=== PATIENT | male | born 1950 | race African-American/Black ===

== ENCOUNTER 2018-04-06 11:42 | Inpatient (IN) | payer BC, MEDICARE ==
[2018-04-06 12:13] LABS: BILIRUBIN,URINE NEGATIVE (NEG); CLARITY,URINE CLEAR; COLOR,URINE YELLOW; GLUCOSE,URINE NEGATIVE (NEG); NITRITE,URINE NEGATIVE (NEG); PROTEIN,URINE NEGATIVE (NEG-TRACE); UROBILINOGEN,URINE 0.2 mg/dL (0.2 mg/dL)
[2018-04-06 12:21] LABS: BACTERIA,URINE 0 /HPF (0-FEW); RBC,URINE 0 /HPF (0-2); WBC,URINE 0 /HPF (0-4)
[2018-04-06 12:32] LABS: ADD MAN DIFF? NO
[2018-04-06] MEDS: IV NORMAL SALINE 1000ML BAG 1,000 ML IV (12:41)
[2018-04-06 12:43] LABS: AMPHETAMINE/METHAMPHETAMINE NEG (NEG); BARBITURATES NEG (NEG); BENZODIAZEPINES NEG (NEG); CANNABINOIDS NEG (NEG); COCAINE NEG (NEG); ETHANOL, URINE NEG (NEG); METHADONE NEG (NEG); OPIATES NEG (NEG); PHENCYCLIDINE NEG (NEG)
[2018-04-06 12:44] LABS: BASO % 1 % (0-3); EOS # 0.1 x10^3/uL (0.0-0.7); EOS % 2 % (0-3); HEMATOCRIT 43.6 % (39.0-53.0); LYMPH # 1.5 x10^3/uL (1.0-4.8); LYMPH % 25 % (24-48); MEAN CORPUSCULAR HEMOGLOBIN 29 pg (25-35); MEAN CORPUSCULAR HGB CONC 34 g/dL (31-37); MEAN CORPUSCULAR VOLUME 85 fL (79-100); MONO # 0.6 x10^3/uL (0.0-1.1); MONO % 10 % (0-9); NEUT # 3.7 x10^3uL (1.8-7.7); NEUT % 63 % (31-73); PLATELET COUNT 274 x10^3/uL (140-400); RED BLOOD COUNT 5.16 x10^6/uL (4.30-5.70); RED CELL DISTRIBUTION WIDTH 13.7 % (11.5-14.5); WHITE BLOOD COUNT 5.9 x10^3/uL (4.0-11.0)
[2018-04-06 12:51] LABS: PROTHROMBIN TIME PATIENT 12.7 SEC (11.7-14.0)
[2018-04-06 12:57] LABS: TROPONINI < 0.017 ng/mL (0.000-0.055)
[2018-04-06 12:58] LABS: BLOOD UREA NITROGEN 22 mg/dL (8-26); BUN/CREATININE RATIO 17 (6-20); CALCIUM 9.4 mg/dL (8.5-10.1); CREATININE 1.3 mg/dL (0.7-1.3); GLUCOSE 111 mg/dL (70-99)
[2018-04-06 12:59] LABS: ANION GAP 11 (6-14); CARBON DIOXIDE 25 mmol/L (21-32); CHLORIDE 104 mmol/L (98-107); GFR 66.8; POTASSIUM 3.2 mmol/L (3.5-5.1); SODIUM 140 mmol/L (136-145)
[2018-04-06 13:02] LABS: THYROID STIM HORMONE (TSH) 1.353 uIU/mL (0.358-3.74)
[2018-04-06 13:02] LABS: ALBUMIN 4.1 g/dL (3.4-5.0); ALBUMIN/GLOBULIN RATIO 1.1 (1.0-1.7); ALK PHOS 66 U/L (46-116); ALT (SGPT) 30 U/L (16-63); AST (SGOT) 21 U/L (15-37); MAGNESIUM 2.1 mg/dL (1.8-2.4); TOTAL BILIRUBIN 0.4 mg/dL (0.2-1.0); TOTAL PROTEIN 7.8 g/dL (6.4-8.2)
[2018-04-06 13:06] LABS: CKMB INDEX 0.6 % (0-4); CKMB MASS 1.9 ng/mL (0.0-3.6); CREATINE KINASE 295 U/L (39-308)
[2018-04-06 13:06] LABS: NT-PRO BNP 426 pg/mL (0-124)
[2018-04-06] MEDS: METOPROLOL TARTRATE 5 MG/5 ML VIAL. IVP ×2 (14:00→16:57)
[2018-04-06] MEDS ORDERED: MORPHINE SULFATE 4 MG/ML DISP.SYRIN. IV (15:30)
[2018-04-06] MEDS ORDERED: ACETAMINOPHEN 325 MG TABLET. PO (15:30)
[2018-04-06] MEDS ORDERED: ONDANSETRON PF 4 MG/2 ML VIAL. IV (15:30)
[2018-04-06] MEDS ORDERED: NITROGLYCERIN SUBLINGUAL 0.4 MG BOTTLE OF 25. SL (15:30)
[2018-04-06] MEDS: POTASSIUM CHLORIDE 20 MEQ TABLET.ER. PO (16:57)
[2018-04-06] MEDS: ASPIRIN ENTERIC COATED 325 MG TABLET.DR. PO (16:57)
[2018-04-06] MEDS: METOPROLOL TART IMMED RELEASE 25 MG TABLET. PO ×2 (18:02→23:38)
[2018-04-06 18:32] LABS: FREE T4 1.01 ng/dL (0.76-1.46)
[2018-04-07 04:54] LABS: ADD MAN DIFF? NO
[2018-04-07 05:00] LABS: BASO # 0.1 x10^3/uL (0.0-0.2); BASO % 1 % (0-3); EOS # 0.3 x10^3/uL (0.0-0.7); EOS % 5 % (0-3); HEMATOCRIT 38.5 % (39.0-53.0); HEMOGLOBIN 13.6 g/dL (13.0-17.5); LYMPH # 1.6 x10^3/uL (1.0-4.8); LYMPH % 28 % (24-48); MEAN CORPUSCULAR HEMOGLOBIN 30 pg (25-35); MEAN CORPUSCULAR HGB CONC 36 g/dL (31-37); MEAN CORPUSCULAR VOLUME 85 fL (79-100); MONO # 0.6 x10^3/uL (0.0-1.1); MONO % 11 % (0-9); NEUT # 3.2 x10^3uL (1.8-7.7); NEUT % 55 % (31-73); PLATELET COUNT 237 x10^3/uL (140-400); RED BLOOD COUNT 4.55 x10^6/uL (4.30-5.70); WHITE BLOOD COUNT 5.9 x10^3/uL (4.0-11.0)
[2018-04-07 05:20] LABS: ALBUMIN 3.3 g/dL (3.4-5.0); ALK PHOS 52 U/L (46-116); ALT (SGPT) 29 U/L (16-63); ANION GAP 9 (6-14); AST (SGOT) 23 U/L (15-37); BLOOD UREA NITROGEN 23 mg/dL (8-26); BUN/CREATININE RATIO 16 (6-20); CALCIUM 8.6 mg/dL (8.5-10.1); CARBON DIOXIDE 27 mmol/L (21-32); CHLORIDE 106 mmol/L (98-107); CREATININE 1.4 mg/dL (0.7-1.3); GFR 61.4; GLUCOSE 104 mg/dL (70-99); POTASSIUM 3.9 mmol/L (3.5-5.1); SODIUM 142 mmol/L (136-145); TOTAL BILIRUBIN 0.4 mg/dL (0.2-1.0); TOTAL PROTEIN 6.6 g/dL (6.4-8.2)
[2018-04-07 05:24] LABS: CHOLESTEROL 160 mg/dL (0-200); HDLC 37 mg/dL (40-60); LDLC 90 mg/dL (0-100); NON-HDL CHOLESTEROL 123 mg/dL (0-129); TRIGLYCERIDES 165 mg/dL (0-150); VLDLC 33 mg/dL (0-40)
[2018-04-07 05:32] LABS: CHOLESTEROL/HDL RATIO 4.3
[2018-04-07] MEDS: METOPROLOL TART IMMED RELEASE 25 MG TABLET. PO (06:32)
[2018-04-07] MEDS: ASPIRIN ENTERIC COATED 325 MG TABLET.DR. PO (09:24)
[2018-04-07] MEDS: METOPROLOL TART IMMED RELEASE 50 MG TABLET. PO (10:29)
[2018-04-07] MEDS: APIXABAN 5 MG TABLET. PO (10:29)
[2018-04-07] MEDS ORDERED: ANTI-COAG MONITOR BY PHARMACY. MC (12:15)
== END 2018-04-07 13:05 | disposition home or self-care (01) | DRG 310 ==
LOC: 2 SOUTH 16:10 → ER 11:42 → 2 SOUTH 15:04
DX: I48.91 Unspecified atrial fibrillation (principal); M19.90 Unspecified osteoarthritis, unspecified site; I42.9 Cardiomyopathy, unspecified; I10 Essential (primary) hypertension; E78.00 Pure hypercholesterolemia, unspecified; E78.5 Hyperlipidemia, unspecified; K21.9 Gastro-esophageal reflux disease without esophagitis; E87.6 Hypokalemia; E66.9 Obesity, unspecified; G47.33 Obstructive sleep apnea (adult) (pediatric); Z68.31 Body mass index [BMI] 31.0-31.9, adult; Z83.3 Family history of diabetes mellitus; Z82.49 Family history of ischemic heart disease and other diseases of the circulatory system; Z84.89 Family history of other specified conditions
CPT/HCPCS: 36415; 71045; 80053; 80061; 80307; 81001; 82553; 83735; 83880; 84439; 84443; 84484; 85025; 85610; 93005; 93306; 96360; 99285; 99285-25; J3490; J7030

== ENCOUNTER 2018-04-10 10:11 | Inpatient (IN) | payer BC, MEDICARE ==
[2018-04-10 10:42] LABS: ADD MAN DIFF? NO
[2018-04-10 10:47] LABS: BASO # 0.1 x10^3/uL (0.0-0.2); BASO % 1 % (0-3); EOS # 0.1 x10^3/uL (0.0-0.7); EOS % 2 % (0-3); HEMATOCRIT 40.5 % (39.0-53.0); HEMOGLOBIN 14.1 g/dL (13.0-17.5); LYMPH # 1.3 x10^3/uL (1.0-4.8); LYMPH % 18 % (24-48); MEAN CORPUSCULAR HEMOGLOBIN 30 pg (25-35); MEAN CORPUSCULAR HGB CONC 35 g/dL (31-37); MEAN CORPUSCULAR VOLUME 85 fL (79-100); MONO # 0.5 x10^3/uL (0.0-1.1); MONO % 7 % (0-9); NEUT # 5.3 x10^3uL (1.8-7.7); NEUT % 72 % (31-73); PLATELET COUNT 255 x10^3/uL (140-400); RED BLOOD COUNT 4.76 x10^6/uL (4.30-5.70); RED CELL DISTRIBUTION WIDTH 13.6 % (11.5-14.5); WHITE BLOOD COUNT 7.3 x10^3/uL (4.0-11.0)
[2018-04-10 10:58] LABS: INR 1.1 (0.8-1.1); PROTHROMBIN TIME PATIENT 13.7 SEC (11.7-14.0)
[2018-04-10 11:04] LABS: ANION GAP 10 (6-14); BLOOD UREA NITROGEN 27 mg/dL (8-26); BUN/CREATININE RATIO 21 (6-20); CALCIUM 8.8 mg/dL (8.5-10.1); CARBON DIOXIDE 24 mmol/L (21-32); CHLORIDE 105 mmol/L (98-107); CREATININE 1.3 mg/dL (0.7-1.3); GFR 66.8; GLUCOSE 116 mg/dL (70-99); POTASSIUM 3.9 mmol/L (3.5-5.1); SODIUM 139 mmol/L (136-145)
[2018-04-10 11:11] LABS: ALBUMIN 3.9 g/dL (3.4-5.0); ALBUMIN/GLOBULIN RATIO 1.1 (1.0-1.7); ALK PHOS 67 U/L (46-116); ALT (SGPT) 127 U/L (16-63); AST (SGOT) 83 U/L (15-37); LIPASE 112 U/L (73-393); MAGNESIUM 2.1 mg/dL (1.8-2.4); TOTAL BILIRUBIN 0.4 mg/dL (0.2-1.0); TOTAL PROTEIN 7.4 g/dL (6.4-8.2)
[2018-04-10 11:17] LABS: THYROID STIM HORMONE (TSH) 1.171 uIU/mL (0.358-3.74)
[2018-04-10 11:18] LABS: TROPONINI < 0.017 ng/mL (0.000-0.055)
[2018-04-10 11:27] LABS: CKMB INDEX 0.6 % (0-4); CKMB MASS 2.1 ng/mL (0.0-3.6); CREATINE KINASE 347 U/L (39-308)
[2018-04-10] MEDS ORDERED: ONDANSETRON PF 4 MG/2 ML VIAL. IV ×2 (11:45→15:00)
[2018-04-10] MEDS ORDERED: fentaNYL PF VIAL 100 MCG/2 ML VIAL IV (11:45)
[2018-04-10] MEDS ORDERED: ACETAMINOPHEN 325 MG TABLET. PO (11:45)
[2018-04-10 12:10] LABS: NT-PRO BNP 900 pg/mL (0-124)
[2018-04-10] MEDS ORDERED: traMADol 50 MG TABLET PO (15:00)
[2018-04-10] MEDS ORDERED: MORPHINE SULFATE 2 MG/ML DISP.SYRIN. IV (15:00)
[2018-04-10] MEDS ORDERED: DOCUSATE SODIUM 100 MG CAPSULE. PO (15:00)
[2018-04-10] MEDS ORDERED: hydrALAZINE 20 MG/ML VIAL. IVP (15:00)
[2018-04-10] MEDS: LOSARTAN POTASSIUM 25 MG TABLET. PO (15:30)
[2018-04-10 17:47] LABS: TROPONINI < 0.017 ng/mL (0.000-0.055)
[2018-04-10] MEDS: APIXABAN 5 MG TABLET. PO (20:12)
[2018-04-10] MEDS: PERPHENAZINE 2 MG TABLET PO (21:00)
[2018-04-11 05:18] LABS: ADD MAN DIFF? NO
[2018-04-11 05:36] LABS: BASO # 0.1 x10^3/uL (0.0-0.2); BASO % 1 % (0-3); EOS # 0.3 x10^3/uL (0.0-0.7); EOS % 5 % (0-3); HEMATOCRIT 38.4 % (39.0-53.0); HEMOGLOBIN 13.3 g/dL (13.0-17.5); LYMPH # 1.6 x10^3/uL (1.0-4.8); LYMPH % 31 % (24-48); MEAN CORPUSCULAR HEMOGLOBIN 29 pg (25-35); MEAN CORPUSCULAR HGB CONC 35 g/dL (31-37); MEAN CORPUSCULAR VOLUME 85 fL (79-100); MONO # 0.5 x10^3/uL (0.0-1.1); MONO % 10 % (0-9); NEUT # 2.6 x10^3uL (1.8-7.7); NEUT % 52 % (31-73); PLATELET COUNT 213 x10^3/uL (140-400); RED BLOOD COUNT 4.52 x10^6/uL (4.30-5.70); RED CELL DISTRIBUTION WIDTH 13.9 % (11.5-14.5)
[2018-04-11 06:11] LABS: ALBUMIN 3.3 g/dL (3.4-5.0); ALK PHOS 56 U/L (46-116); ALT (SGPT) 84 U/L (16-63); ANION GAP 11 (6-14); AST (SGOT) 42 U/L (15-37); BLOOD UREA NITROGEN 20 mg/dL (8-26); BUN/CREATININE RATIO 17 (6-20); CALCIUM 8.7 mg/dL (8.5-10.1); CARBON DIOXIDE 24 mmol/L (21-32); CHLORIDE 106 mmol/L (98-107); CREATININE 1.2 mg/dL (0.7-1.3); GFR 73.3; GLUCOSE 100 mg/dL (70-99); POTASSIUM 3.5 mmol/L (3.5-5.1); SODIUM 141 mmol/L (136-145); TOTAL BILIRUBIN 0.5 mg/dL (0.2-1.0); TOTAL PROTEIN 6.5 g/dL (6.4-8.2)
[2018-04-11] MEDS: PANTOPRAZOLE 40 MG TABLET.DR. PO ×2 (07:20→14:48)
[2018-04-11] MEDS: POTASSIUM CHLORIDE 10 MEQ TABLET.ER. PO ×2 (09:00→14:49)
[2018-04-11] MEDS: LOSARTAN POTASSIUM 25 MG TABLET. PO ×2 (09:00→14:50)
[2018-04-11] MEDS: TERBINAFINE 250 MG TABLET. PO ×2 (09:00→14:49)
[2018-04-11] MEDS: APIXABAN 5 MG TABLET. PO ×2 (09:00→20:12)
[2018-04-11] MEDS ORDERED: LIDOCAINE 2%/EPI 1:100,000 20 ML VIAL. (11:44)
[2018-04-11] MEDS: IODIXANOL 320 MG/ML 100 ML VIAL. IV (12:25)
[2018-04-11] MEDS: BACITRACIN 50,000 UNIT in IV NORMAL SALINE 250ML 250 ML IRR (13:03)
[2018-04-11] MEDS: LIDOCAINE 2%/EPI 1:100,000 20 ML VIAL. IJ (13:04)
[2018-04-11] MEDS: MIDAZOLAM HCL/PF 5 MG/5 ML VIAL. IV (13:05)
[2018-04-11] MEDS: fentaNYL PF VIAL 250 MCG/5 ML VIAL IV (13:05)
[2018-04-11] MEDS ORDERED: CONTRAST GIVEN. MC (13:15)
[2018-04-11] MEDS ORDERED: oxyCODONE/APAP 5/325 1 TAB TABLET PO (14:45)
[2018-04-11] MEDS ORDERED: NO ANTICOAGULANT THERAPY. MC (14:45)
[2018-04-11] MEDS: METOPROLOL TART IMMED RELEASE 25 MG TABLET. PO ×2 (14:48→21:15)
[2018-04-11] MEDS: ANTI-COAG MONITOR BY PHARMACY. MC ×2 (15:46→15:59)
[2018-04-11] MEDS: METOPROLOL TARTRATE 5 MG/5 ML VIAL. IVP (16:28)
[2018-04-11] MEDS: IV NORMAL SALINE 1000ML BAG 1,000 ML IV (16:29)
[2018-04-11] MEDS ORDERED: DIGOXIN IV 500 MCG/2 ML AMPUL. IV (17:00)
[2018-04-11] MEDS: ACETAMINOPHEN 325 MG TABLET. PO (18:31)
[2018-04-11] MEDS: PERPHENAZINE 2 MG TABLET PO (21:15)
[2018-04-12 05:28] LABS: ADD MAN DIFF? NO
[2018-04-12 05:31] LABS: BASO # 0.1 x10^3/uL (0.0-0.2); BASO % 1 % (0-3); EOS # 0.2 x10^3/uL (0.0-0.7); EOS % 3 % (0-3); HEMATOCRIT 38.5 % (39.0-53.0); HEMOGLOBIN 13.4 g/dL (13.0-17.5); LYMPH # 1.5 x10^3/uL (1.0-4.8); LYMPH % 23 % (24-48); MEAN CORPUSCULAR HEMOGLOBIN 30 pg (25-35); MEAN CORPUSCULAR HGB CONC 35 g/dL (31-37); MEAN CORPUSCULAR VOLUME 85 fL (79-100); MONO # 0.7 x10^3/uL (0.0-1.1); MONO % 11 % (0-9); NEUT # 3.9 x10^3uL (1.8-7.7); NEUT % 62 % (31-73); PLATELET COUNT 216 x10^3/uL (140-400); RED BLOOD COUNT 4.51 x10^6/uL (4.30-5.70); RED CELL DISTRIBUTION WIDTH 13.7 % (11.5-14.5); WHITE BLOOD COUNT 6.3 x10^3/uL (4.0-11.0)
[2018-04-12 06:12] LABS: ANION GAP 10 (6-14); BLOOD UREA NITROGEN 18 mg/dL (8-26); CALCIUM 8.5 mg/dL (8.5-10.1); CARBON DIOXIDE 23 mmol/L (21-32); CHLORIDE 107 mmol/L (98-107); CREATININE 1.3 mg/dL (0.7-1.3); GFR 66.8; GLUCOSE 107 mg/dL (70-99); POTASSIUM 3.8 mmol/L (3.5-5.1); SODIUM 140 mmol/L (136-145)
[2018-04-12] MEDS: METOPROLOL TART IMMED RELEASE 25 MG TABLET. PO (09:18)
[2018-04-12] MEDS: APIXABAN 5 MG TABLET. PO ×2 (09:18→12:21)
== END 2018-04-12 14:30 | disposition home or self-care (01) | DRG 243 ==
LOC: ER 10:11 → 2 SOUTH 04-11 13:11 → 5 NORTH 11:39
PROC: 0JH606Z Insertion of Pacemaker, Dual Chamber into Chest Subcutaneous Tissue and Fascia, Open Approach (ICD-10-PCS; principal; 2018-04-11)
PROC: 02H63JZ Insertion of Pacemaker Lead into Right Atrium, Percutaneous Approach (ICD-10-PCS; 2018-04-11)
PROC: 02HK3JZ Insertion of Pacemaker Lead into Right Ventricle, Percutaneous Approach (ICD-10-PCS; 2018-04-11)
DX: I49.5 Sick sinus syndrome (principal); J98.11 Atelectasis; I50.20 Unspecified systolic (congestive) heart failure; I48.91 Unspecified atrial fibrillation; E78.00 Pure hypercholesterolemia, unspecified; I42.9 Cardiomyopathy, unspecified; F20.9 Schizophrenia, unspecified; E78.5 Hyperlipidemia, unspecified; K21.9 Gastro-esophageal reflux disease without esophagitis; N52.9 Male erectile dysfunction, unspecified; I11.0 Hypertensive heart disease with heart failure; M19.90 Unspecified osteoarthritis, unspecified site
CPT/HCPCS: 33217; 36415; 71045; 71046; 80048; 80053; 82553; 83690; 83735; 83880; 84443; 84484; 85025; 85610; 93005; 99152; 99153; 99285; 99285-25; C1785; C1898; J0690; J2250; J3010; J3490; J7030; J7050; Q0175

== ENCOUNTER → 2018-05-08 | Day surgery (SDC) | payer BC, MEDICARE ==
[~2018-05-08] MED LIST: 0.9 % SODIUM CHLORIDE 10 ML DISP.SYRIN. IV; IV RINGERS,LACTATED 1000ML 1,000 ML IV; LIDOCAINE 1% PF 2 ML VIAL. ID; MORPHINE SULFATE 2 MG/ML DISP.SYRIN. IV; ONDANSETRON PF 4 MG/2 ML VIAL. IV; PROCHLORPERAZINE 10 MG/2 ML VIAL. IV; fentaNYL PF VIAL 100 MCG/2 ML VIAL IV
== END | disposition home or self-care (01) ==
LOC: SURG 09:48
DX: I48.91 Unspecified atrial fibrillation (principal); Z53.8 Procedure and treatment not carried out for other reasons; I49.5 Sick sinus syndrome; E78.00 Pure hypercholesterolemia, unspecified; Z79.01 Long term (current) use of anticoagulants; Z95.0 Presence of cardiac pacemaker; E66.9 Obesity, unspecified; M17.0 Bilateral primary osteoarthritis of knee; F20.9 Schizophrenia, unspecified; Z72.89 Other problems related to lifestyle; I42.9 Cardiomyopathy, unspecified; K21.9 Gastro-esophageal reflux disease without esophagitis; I11.0 Hypertensive heart disease with heart failure; I50.20 Unspecified systolic (congestive) heart failure; Z68.31 Body mass index [BMI] 31.0-31.9, adult; Z83.3 Family history of diabetes mellitus; G47.33 Obstructive sleep apnea (adult) (pediatric)
CPT/HCPCS: 93005

== ENCOUNTER → 2018-05-30 | Outpatient (CLI) | payer BC, MEDICARE ==
[2018-05-16 11:00] VITALS: BP 159/99
[~2018-05-30] MED LIST changes: -0.9 % SODIUM CHLORIDE 10 ML DISP.SYRIN. IV; +AMLO10TA2 PO; +APIX5TAB PO; +ATOR40TA59 PO; +DILT240C77 PO; -IV RINGERS,LACTATED 1000ML 1,000 ML IV; +LABE200T4 PO; -LIDOCAINE 1% PF 2 ML VIAL. ID; +LOSA1TAB22 PO; +METO25TA4 PO; +METO50TA6 PO; -MORPHINE SULFATE 2 MG/ML DISP.SYRIN. IV; +OMEP40CA5 PO; -ONDANSETRON PF 4 MG/2 ML VIAL. IV; +PERP8TAB2 PO; +PITA4TAB2 PO; +POTA10TA12 PO; -PROCHLORPERAZINE 10 MG/2 ML VIAL. IV; +TERB250T11 PO; -fentaNYL PF VIAL 100 MCG/2 ML VIAL IV
--- NOTE | 2018-05-31 00:48 | RAD ---
EXAM: Carotid Doppler sonogram. HISTORY: Dizziness. TECHNIQUE: Chaudhari scale and color Doppler sonographic evaluation of the neck with spectral waveform analysis was performed and static images are submitted for review. FINDINGS: RIGHT: The peak systolic velocity within the common carotid artery is 124 cm/sec. The peak systolic velocity within the internal carotid artery is 93 cm/sec and the end diastolic velocity within the internal carotid artery is 29 cm/sec. The ICA/CCA ratio is 0.75. Grayscale images demonstrate no grayscale stenosis. LEFT: The peak systolic velocity within the common carotid artery is 109 cm/sec. The peak systolic velocity within the internal carotid artery is 105 cm/sec and the end diastolic velocity within the internal carotid artery is 49 cm/sec. The ICA/CCA ratio is 0.97. Grayscale images demonstrate no grayscale stenosis. There is antegrade flow within both vertebral arteries. IMPRESSION: 1. End diastolic velocities within the proximal and mid left internal carotid artery prediction 50-69% stenosis, but peak systolic velocities are normal. CTA or MRA could further exclude stenosis if there is persistent concern. PQRS Compliance Statement - Stenosis calculations for CT, MR and conventional angiography are based upon measurement of the distal ICA diameter in accordance with the NASCET methodology. Stenosis calculations for carotid ultrasound studies are derived from validated velocity criteria which are known to correlate with the NASCET methodology. Electronically signed by: Britney Contreras MD (05/31/2018 12:45 AM) [facility]
== END | disposition home or self-care (01) ==
LOC: US 14:53
PROVIDERS: ATTEND Nurse Practitioner
DX: R42 Dizziness and giddiness (principal)
CPT/HCPCS: 93880

== ENCOUNTER → 2018-06-12 | Outpatient (CLI) | payer BC, MEDICARE ==
[2018-05-16 11:00] VITALS: BP 159/99
--- NOTE | 2018-06-12 17:09 | RAD ---
MR#: [id number] Date of Study: 06/12/2018 Ordering Physician: JUSTIN BLANCAS, Referring Physician: JUSTIN BLANCAS, Tech: Kris Peres MBA, RDMS, RVT, RDCS, RTR APPROVED REPORT Patient Location: OUT-PATIENT Indications Uncontrolled HTN Renal Artery Doppler Right Renal Artery Left Renal Arter y Proximal 177.0/66.0 cm/secProximal 106.0/29.0 cm/sec Mid 163.0/43.0 cm/secMid 154.0/43.0 cm/sec Distal 113.0/36.0 cm/secDistal 115.0/36.0 cm/sec Renal/Aorta Ratio 1.93Renal/Aorta Ratio 1.68 Prox. Resistive Index 0.63Prox. Resistive Index 0.73 Mid Resistive Index 0.73Mid Resistive Index 0.72 Distal Resistive Index 0.68Distal Resistive Index 0.69 Rt. Segmental A. 45.0/13.0 cm/secLt. Segmental A. 78.0/30.0 cm/sec Renal Measurements RightLeft Kidney Jhhyhn88.9 cm cmKidney Iphunv99.1 cm cm Right Additional FindingsLeft Additional Findings Aortic Doppler VelocityWaveform Mid. Aorta 92.0 cm/sec Findings Grayscale images of the abdominal aorta are limited but there is mild diffuse calcification. Bilateral zamarripa scale images of the kidneys although limited did not reveal any obvious pathology. Spectral waveforms and color Doppler of the right and left renal arteries reveal mildly elevated [place] cities at 177 and 106 cm/s respectively. Renal to aortic ratios are grossly within normal limits at less than 2. No significant flow-limiting stenosis is identified. Critical Notification Critical Value: No <Conclusion> No significant renal artery stenosis by velocity criteria. Signed by : Teodoro Mata, Electronically Approved : 06/12/2018 17:08:29
== END | disposition home or self-care (01) ==
LOC: US 15:59
PROVIDERS: ATTEND Internal Medicine Cardiovascular Disease
DX: I11.0 Hypertensive heart disease with heart failure (principal); I50.20 Unspecified systolic (congestive) heart failure; E78.00 Pure hypercholesterolemia, unspecified; M19.90 Unspecified osteoarthritis, unspecified site; K21.9 Gastro-esophageal reflux disease without esophagitis; Z95.0 Presence of cardiac pacemaker
CPT/HCPCS: 93975

== ENCOUNTER → 2018-10-04 | Outpatient (CLI) | payer MEDICARE ==
[2018-05-16 11:00] VITALS: BP 159/99
[~2018-10-04] MED LIST changes: -AMLO10TA2 PO; +AMLO10TA6 PO; -DILT240C77 PO; +DILT240C82 PO; +ZOLPIDEM 5 MG TABLET. PO ONE
--- NOTE | 2018-10-05 15:20 | SLEEP ---
DATE OF STUDY: 10/04/2018 SLEEP STUDY REFERRING PHYSICIAN: NUZHAT Toribio The patient is 68 years old who weighs 200 pounds with a BMI of 32. The patient's [place] score was 9. The patient underwent split night study at [facility]. During the night study, the patient spent 521 minutes in bed and slept for 387 minutes with a sleep efficiency of 74%. Sleep latency was 15 minutes with a REM latency of 200 minutes. Overall, sleep architecture showed an increased stage 1 and stage 2 sleep, reduced slow wave and reduced REM sleep. During the initial diagnostic portion of the study, the patient slept for 176 minutes. During that time, there were 31 obstructive apneas, 2 mixed apneas, no central apneas and 55 hypopneas. The patient's apnea hypopnea index was 30 per hour, supine index 53 per hour and a REM index of 102 per hour. EKG monitoring revealed normal sinus rhythm, average heart rate was 61 beats per minute. No arrhythmias observed. PLMS were seen at the index of 16 per hour and 1 per hour caused EEG arousals. Nocturnal oximetry study revealed a mean oxygen saturation of 94% with lowest of 80%. 23% of the time oxygen saturation remained between 80% and 89%. The patient met the criteria for CPAP initiation. It was started at 5 cm water and titrated up to 18 cm water. At a final pressure, the patient slept for 15 minutes. The patient had REM sleep, but no supine sleep. The patient's AHI was reduced to 4 per hour and oxygen saturation remained above 89%. The patient uses small size nasal pillows. IMPRESSION: 1. Severe sleep apnea-hypopnea syndrome at an apnea-hypopnea index of 30 per hour. 2. Nocturnal hypoxia secondary to obstructive sleep apnea, but resolved with continuous positive airway pressure. 3. Mild periodic limb movements in sleep without any EEG arousals. This does not need to be treated. RECOMMENDATIONS: 1. CPAP at 18 cm water should be used on a nightly basis. 2. Follow up in 4-6 weeks to assess compliance with CPAP and to document clinical improvement. 3. Weight loss is strongly advised. 4. 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 5. Caution regarding driving until symptoms of sleep apnea resolve with the use of CPAP. TASHA U. YAO, MD DR: YUE/bella JOB#: [id number] / [id number] VICENTA Herrmann
== END | disposition home or self-care (01) ==
LOC: SLPLAB 18:25
PROVIDERS: ATTEND Physician Assistant Surgical
DX: G47.33 Obstructive sleep apnea (adult) (pediatric) (principal); G47.34 Idiopathic sleep related nonobstructive alveolar hypoventilation; G47.61 Periodic limb movement disorder
CPT/HCPCS: 95810

== ENCOUNTER → 2019-02-05 | Outpatient (CLI) | payer MEDICARE, BC ==
[2018-05-16 11:00] VITALS: BP 159/99
[~2019-02-05] VITALS: Ht 170.2 cm; Wt 95.3 kg
[~2019-02-05] MED LIST changes: -AMLO10TA6 PO; +AMLO10TA8 PO; +REGADENOSON 0.4 MG/5 ML DISP.SYRIN. IV ONE; +SINCALIDE 1.6 MCG in IV NORMAL SALINE 50ML 30 ML IV ONE; -ZOLPIDEM 5 MG TABLET. PO ONE
--- NOTE | 2019-02-05 12:27 | RAD ---
MR#: [id number] Date of Study: 02/05/2019 Ordering Physician: JUSTIN BLANCAS, Referring Physician: USAMA TREJO Tech: RT Mckenzie (R) (N) APPROVED REPORT Test Type: Pharmacological Stress Nurse/Tech: Tiffany EDMONDSON Test Indications: Paroxysmal A-fib, SOB Cardiac History: HTN, PPM (03/2018), See EMR Medications: See EMR Medical History: Asthma/COPD, See EMR Resting ECG: SR w/ A-pacing Resting Heart Rate: 63 bpm Resting Blood Pressure: 133/66mmHg Pretest Chest Pain: No chest pain Nurse/Tech Notes Lungs CTA, Heart tones regular Consent: The procedure was explained to the patient in lay terms. Informed consent was witnessed. Yash eout was entered into [employer]. History and Stress Test performed by [facility] [employer]. Details Pharmacologic stress testing was performed using 0.4mg per 5ml of regadenoson given intravenously ove r 7-10 seconds. Stress Symptoms Dyspnea POST EXERCISE Reason for Termination: Infusion complete Max HR: 88 bpm Max Blood Pressure: 148/60mmHg Chest Pain: No. Arrhythmia: No. ST Change: No. INTERPRETATION Stress EKG Conclusion: Baseline EKG showed sinus rhythm with demand pacing. Non diagnostic changes a t peak stress. No arrhythmias. Imaging Protocol IMAGE PROTOCOL: Rest Tc-99m/stress Tc-99m 1 day Rest: Stress: Viability: Radiopharm.Tc99m NflbaxzcsIv15z Sestamibi Hciu43aCc 33mCi Duration 13min. 13min. Img Date 02/05/2019 02/05/2019 Inj-Img Obmh00qtr. 60min. Rest Admin Site:IV - Left ForearmAdministrator:RT Zoraida (Nader)(N) Stress Admin Site: IV - Left ForearmAdministrator: [facility] STRESS DATA End Diast. Vol.128.0mlLVEDV index BSA62.0ml End Syst. Vol.34.0mlLVESV index BSA16.0ml Myocardial Uuhj592.0gEject. Iacmazzd56.0% Stress Scores Regional WT0.00Summed WT0.00 Regional WM0.00Summed WM0.00 Study quality was good. Left Ventricular size was Normal at Rest and Stress. Lung uptake was . Left Ventricular ejection fraction is 73%. The rest and stress images show normal perfusion, normal contraction and thickening. LV Perf. Quant 17 Seg. SSS2.00 17 Seg. SRS5.00 17 Seg. SDS0.00 Stress Defect Extent (% LAD)0.00Rest Defect Extent (% LAD)0.00Rev. Defect Extent (% LAD)0.00 Stress Defect Extent (% LCX) 22.50Rest Defect Extent (% LCX)23.80Rev. Defect Extent (% LCX)0.00 Stress Defect Extent (% RCA)0.00Rest Defect Extent (% RCA)2.20Rev. Defect Extent (% RCA)0.00 Stress Defect Extent (% BRANDIE)5.00Rest Defect Extent (% BRANDIE)6.70Rev. Defect Extent (% BRANDIE)0.00 Conclusion 1. Regadenoson cardioisotope stress test did not show any evidence of ischemia or infarct. 2. Normal left ventricular systolic function with ejection fraction calculated at 73%. 3. Low risk for cardiac events. Signed by : Justin Blancas, Electronically Approved : 02/05/2019 12:27:43
== END | disposition home or self-care (01) ==
LOC: NM 08:22
PROVIDERS: ATTEND Internal Medicine Cardiovascular Disease
DX: I48.0 Paroxysmal atrial fibrillation (principal); J44.9 Chronic obstructive pulmonary disease, unspecified
CPT/HCPCS: 78452; 93017; A9500; J2785

== ENCOUNTER → 2019-03-26 | Outpatient (CLI) | payer MEDICARE, BC ==
[2018-05-16 11:00] VITALS: BP 159/99
[~2019-03-26] MED LIST changes: -REGADENOSON 0.4 MG/5 ML DISP.SYRIN. IV ONE; -SINCALIDE 1.6 MCG in IV NORMAL SALINE 50ML 30 ML IV ONE
== END | disposition home or self-care (01) ==
LOC: LAB 09:24
PROVIDERS: ATTEND Psychiatry & Neurology Neurology
DX: E55.9 Vitamin D deficiency, unspecified (principal)
CPT/HCPCS: 36415; 82306; 82947

== ENCOUNTER → 2019-08-01 | Outpatient (CLI) | payer MEDICARE ==
[2018-05-16 11:00] VITALS: BP 159/99
[~2019-08-01] MED LIST changes: +DILT240C33 PO; -DILT240C82 PO; +OMEP40CA45 PO; -OMEP40CA5 PO; +ZOLPIDEM 5 MG TABLET. PO ONE
--- NOTE | 2019-08-08 11:41 | SLEEP ---
DATE OF STUDY: 08/01/2019 REFERRING PHYSICIAN: Norman Linares MD. PRIMARY PHYSICIAN: NUZHAT Toribio. The patient is 69 years old, who weighs 195 pounds, who has a diagnosis of severe sleep apnea. The patient's [place] score was 10. Patient was prescribed CPAP of 18 cm H20 The patient was referred back for repeat CPAP titration due to EDS During the night study, the patient spent 443 minutes in bed and slept for 394 minutes with a sleep efficiency of 84%. Sleep latency was 20 minutes with a REM latency of 213 minutes. Sleep architecture showed increased stage 1 and stage 1 sleep, normal slow wave, and normal REM sleep. EKG monitoring revealed an average heart rate of 60 beats per minute, no sustained arrhythmias observed. PLMs were seen at index of 72 per hour and 9 per hour caused EEG arousals. The patient was started on CPAP at 5 cm water and titrated up to 14 cm water. At the final pressure, the patient slept for 46 minutes. The patient had supine sleep, but no REM sleep. The patient's AHI was reduced to 0 per hour and oxygen saturation remained above 93%. The patient used a medium size full face mask. IMPRESSION: 1. Severe Sleep apnea, diagnosed previously. 2. Severe period limb movements. RECOMMENDATIONS: 1. CPAP at 14 cm water completely eliminated the patient's sleep apnea and should be used on a nightly basis. 2. Follow up in 4-6 weeks to assess compliance with CPAP and to document clinical improvement. 3. Weight loss is advised. 4. 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 5. Cautioned regarding driving until symptoms of sleep apnea resolve with the use of CPAP. 6. The patient use medium size full face mask. TASHA YAO MD DR: YUE/bella JOB#: [id number] / [id number] NORMAN France MD MTDD
== END | disposition home or self-care (01) ==
LOC: RT 18:46
PROVIDERS: ATTEND Internal Medicine Pulmonary Disease
DX: G47.33 Obstructive sleep apnea (adult) (pediatric) (principal); G47.61 Periodic limb movement disorder
CPT/HCPCS: 95811

== ENCOUNTER → 2019-12-06 | Outpatient (CLI) | payer MEDICARE ==
[2018-05-16 11:00] VITALS: BP 159/99
[~2019-12-06] MED LIST changes: +POTASSIUM CHLO10 ME1 PO; -ZOLPIDEM 5 MG TABLET. PO ONE
--- NOTE | 2019-12-06 13:52 | CARD ---
MR#: [id number] Date of Study: 12/06/2019 Ordering Physician: JUSTIN BLANCAS, Referring Physician: JUSTIN BLANCAS, Tech: Michelle Hubbard RDCS APPROVED REPORT EXAM: Two-dimensional and M-mode echocardiogram with Doppler and color Doppler. Other Information Quality : AverageHR: 60bpm Rhythm : NSR INDICATION Hypertension/HCVD 2D DIMENSIONS RVDd3.3 (2.9-3.5cm)Left Atrium(2D)3.8 (1.6-4.0cm) IVSd1.2 (0.7-1.1cm)Aortic Root(2D)3.3 (2.0-3.7cm) LVDd5.3 (3.9-5.9cm)LVOT Diameter2.1 (1.8-2.4cm) PWd1.1 (0.7-1.1cm)IVSs1.8 (0.8-1.2cm) LVDs3.2 (2.5-4.0cm)FS (%) 40.9 % PWs1.9 (0.8-1.2cm)SV98.4 ml M-Mode DIMENSIONS Left Atrium(MM)3.78 (2.5-4.0cm)Aortic Root3.48 (2.2-3.7cm) Aortic Valve AoV Peak Cedric.121.0cm/sAoV VTI23.1cm AO Peak GR.5.9mmHgLVOT Peak Cedric.106.8cm/s LVOT VTI 22.32cmAO Mean GR.3mmHg MARIE (VMAX)2.38is9ILH (VTI)3.24cm2 Pulmonary Valve PV Peak Lraqjplv747.8cm/sPV Peak Grad.8mmHg Tricuspid Valve TR P. Qewmogpi332fb/sRAP GYTPJHOZ5ljPw TR Peak Gr.89btRnMFVT11czMm LEFT VENTRICLE The left ventricle is normal size. There is mild concentric left ventricular hypertrophy. The left ve ntricular systolic function is normal and the ejection fraction is within normal range. The Ejection Fraction is 60-65%. There is normal LV segmental wall motion. Transmitral Doppler flow pattern is Gra de I-abnormal relaxation pattern. RIGHT VENTRICLE The right ventricle is normal size. There is normal right ventricular wall thickness. The right ventr icular systolic function is normal. ATRIA The left atrium size is normal. The right atrium size is normal. The interatrial septum is intact wit h no evidence for an atrial septal defect or patent foramen ovale as noted on 2-D or Doppler imaging. AORTIC VALVE The aortic valve is normal in structure and function. The aortic valve is trileaflet. Doppler and Col or Flow revealed no significant aortic regurgitation. There is no significant aortic valvular stenosi s. MITRAL VALVE The mitral valve is normal in structure and function. There is no evidence of mitral valve prolapse. There is no mitral valve stenosis. Doppler and Color Flow revealed no mitral valve regurgitation note d. TRICUSPID VALVE The tricuspid valve is normal in structure and function. Doppler and Color Flow revealed trace to mil d tricuspid regurgitation. The PA pressure was estimated at 22 mmHg. There is no tricuspid valve prol apse or vegetation. There is no tricuspid valve stenosis. PULMONIC VALVE The pulmonary valve is normal in structure and function. Doppler and Color Flow revealed mild pulmoni c valvular regurgitation. There is no pulmonic valvular stenosis. GREAT VESSELS The aortic root is normal in size. The ascending aorta is normal in size. The IVC is normal in size a nd collapses >50% with inspiration. PERICARDIAL EFFUSION There is no evidence of significant pericardial effusion. Critical Notification Critical Value: No <Conclusion> The left ventricle is normal size. The left ventricular systolic function is normal and the ejection fraction is within normal range. The Ejection Fraction is 60-65%. There is mild concentric left ventricular hypertrophy. Doppler and Color Flow revealed no significant aortic regurgitation. There is no significant aortic valvular stenosis. Doppler and Color Flow revealed no mitral valve regurgitation noted. Doppler and Color Flow revealed trace to mild tricuspid regurgitation. The PA pressure was estimated at 22 mmHg. Signed by : Bryson Obregon MD Electronically Approved : 12/06/2019 13:52:05
== END | disposition home or self-care (01) ==
LOC: ECHO 12:45
PROVIDERS: ATTEND Internal Medicine Cardiovascular Disease
DX: I08.8 Other rheumatic multiple valve diseases (principal); I11.9 Hypertensive heart disease without heart failure
CPT/HCPCS: 93306

== ENCOUNTER → 2020-08-28 | Outpatient (CLI) | payer MEDICARE ==
[2018-05-16 11:00] VITALS: BP 159/99
[~2020-08-28] MED LIST changes: +AMLO-187 PO; -AMLO10TA8 PO; +REGADENOSON 0.4 MG/5 ML DISP.SYRIN. IV ONE; -TERB250T11 PO; +TERB250T84 PO
--- NOTE | 2020-08-28 16:51 | RAD ---
MR#: [id number] Date of Study: 08/28/2020 Ordering Physician: JUSTIN BLANCAS, Referring Physician: USAMA TREJO Tech: YUSUF Banuelos, FEROZ (R) (N) APPROVED REPORT Test Type: Pharmacological Stress Nurse/Tech: Dylon Jimenez RN Test Indications: Sick Sinus Syndrome Cardiac History: high cholesterol, HTN, SSS, PPM, See EMR Medications: See EMR Medical History: See EMR Resting ECG: A-Paced Resting Heart Rate: 60 bpm Resting Blood Pressure: 145/78mmHg Pretest Chest Pain: No chest pain Nurse/Tech Notes Lungs CTA, heart tones regular. Consent: The procedure was explained to the patient in lay terms. Informed consent was witnessed. Yash eout was entered into [employer]. History and Stress Test performed by RT Jacquie Rincon) (N) Pharm. Details Pharmacologic stress testing was performed using 0.4mg per 5ml of regadenoson given intravenously ove r 7-10 seconds. Stress Symptoms Dyspnea POST EXERCISE Reason for Termination: Infusion complete Max HR: 88 bpm Max Blood Pressure: 141/68mmHg Blood Pressure response to exercise: Normal blood pressure response during stress. Heart Rate response to exercise: WNL Chest Pain: No. Arrhythmia: No. ST Change: No. INTERPRETATION Stress EKG Conclusion: The resting EKG shows an atrially paced rhythm with mild T wave inversion in t he lateral leads. The stress EKG shows no significant changes from baseline. No EKG evidence of stress-induced ischemia. Imaging Protocol IMAGE PROTOCOL: Rest Tc-99m/stress Tc-99m 1 day Rest: Stress: Viability: Radiopharm.Tc99m WddqhionhFp64m Sestamibi Puql24sVb 33mCi Img Date 08/28/2020 08/28/2020 Inj-Img Lnpw98yyz. 60min. Rest Admin Site:IV - Right HandAdministrator:YUSUF Banuelos, FEROZ (R)(N) Stress Admin Site: IV - Right HandAdministrator: RT Jacquie Rincon)(N) STRESS DATA End Diast. Vol.116.0mlAv. Heart Rate66.0bpm End Syst. Vol.33.0mlCO Index BSA0.0L/min Myocardial Mbms339.0gEject. Ymkpvmft26.0% Stress Rates Pk. Fill Rate2.49EDV/secLVtime Pk. Fill 137.37msec Pk. Empty Rate3.40ESV/secLVtime Pk. Inoyz189.22msec 1/3 Pk. Fill1.57EDV/sec Stress Scores Regional WT0.00Summed WT0.00 Regional WM0.00Summed WM1.00 LV Perfusion The stress scans show no significant defects. The rest scans show no significant defects. Nuclear imaging shows no reversible ischemia or infarct. Wall Motion Left ventricular systolic function is normal with no regional wall motion abnormalities and an ejecti on fraction of greater than 70%. LV Perf. Quant 17 Seg. SSS2.00 17 Seg. SRS12.00 17 Seg. SDS0.00 Stress Defect Extent (% LAD)0.00Rest Defect Extent (% LAD)23.10Rev. Defect Extent (% LAD)0.00 Stress Defect Extent (% LCX) 18.80Rest Defect Extent (% LCX)31.30Rev. Defect Extent (% LCX)0.00 Stress Defect Extent (% RCA)0.00Rest Defect Extent (% RCA)18.90Rev. Defect Extent (% RCA)0.00 Stress Defect Extent (% BRANDIE)4.60Rest Defect Extent (% BRANDIE)25.90Rev. Defect Extent (% BRANDIE)0.00 Conclusion 1. No EKG evidence of stress-induced ischemia. 2. Nuclear imaging shows no reversible ischemia or infarct. 3. Normal left ventricular systolic function with an ejection fraction of greater than 70%. 4. Low risk Lexiscan nuclear stress test. Signed by : Bryson Obregon MD Electronically Approved : 08/28/2020 16:50:19
== END ==
LOC: NM 09:31
PROVIDERS: ATTEND Internal Medicine Cardiovascular Disease
DX: I49.5 Sick sinus syndrome (principal); I10 Essential (primary) hypertension
CPT/HCPCS: 78452; 93017; A9500; J2785

== ENCOUNTER → 2021-03-03 | Outpatient (CLI) | payer MEDICARE ==
[2018-05-16 11:00] VITALS: BP 159/99
[~2021-03-03] MED LIST changes: -REGADENOSON 0.4 MG/5 ML DISP.SYRIN. IV ONE
--- NOTE | 2021-03-03 16:43 | CARD ---
MR#: [id number] Date of Study: 03/03/2021 Ordering Physician: JUSTIN BLANCAS, Referring Physician: JUSTIN BLANCAS Tech: Nelda Hawthorne [facility] APPROVED REPORT EXAM: Two-dimensional and M-mode echocardiogram with Doppler and color Doppler. Other Information Quality : AverageHR: 62bpm Rhythm : NSR INDICATION Atrial Fibrillation RISK FACTORS Hypertension Obesity 2D DIMENSIONS RVDd3.0 (2.9-3.5cm)Left Atrium(2D)4.5 (1.6-4.0cm) IVSd1.2 (0.7-1.1cm)Aortic Root(2D)3.6 (2.0-3.7cm) LVDd4.8 (3.9-5.9cm)LVOT Diameter2.3 (1.8-2.4cm) PWd1.2 (0.7-1.1cm)LVDs3.3 (2.5-4.0cm) FS (%) 31.0 %SV63.2 ml LVEF(%)58.6 (>50%) Aortic Valve AoV Peak Cedric.187.3cm/sAoV VTI40.2cm AO Peak GR.14.0mmHgLVOT Peak Cedric.136.2cm/s AO Mean GR.6mmHgAVA (VMAX)3.09cm2 Mitral Valve MV E Xymasdno40.9cm/sMV DECEL PQKR130cd MV A Gzvfsmwn376.1cm/sE/A Ratio0.9 Pulmonary Valve PV Peak Uuapoebr474.7cm/s Tricuspid Valve TR P. Ininvlqj785ob/sTR Peak Gr.26mmHg Pulmonary Vein S1 Lpetxlqr18.6cm/sD2 Fdvhsois07.7cm/s PVa dxgixlbp208tvkz LEFT VENTRICLE The left ventricle is normal size. There is mild concentric left ventricular hypertrophy. The left ve ntricular systolic function is normal and the ejection fraction is within normal range. Estimated eje ction fraction 55-60%. There is normal LV segmental wall motion. Transmitral Doppler flow pattern is Grade I-abnormal relaxation pattern. RIGHT VENTRICLE The right ventricle is normal size. There is normal right ventricular wall thickness. The right ventr icular systolic function is normal. ATRIA The left atrium size is normal. The right atrium size is normal. The interatrial septum is intact wit h no evidence for an atrial septal defect or patent foramen ovale as noted on 2-D or Doppler imaging. AORTIC VALVE The aortic valve is normal in structure and function. Doppler and Color Flow revealed trace aortic re gurgitation. There is no significant aortic valvular stenosis. MITRAL VALVE The mitral valve is normal in structure and function. There is no evidence of mitral valve prolapse. There is no mitral valve stenosis. Doppler and Color-flow revealed trace mitral regurgitation. TRICUSPID VALVE The tricuspid valve is normal in structure and function. Doppler and Color Flow revealed trace tricus pid regurgitation. Estimated PAP 30 mmmHg. There is no tricuspid valve stenosis. PULMONIC VALVE Doppler and Color Flow revealed mild pulmonic valvular regurgitation. There is no pulmonic valvular s tenosis. GREAT VESSELS The aortic root is borderline enlarged. The IVC is normal in size and collapses >50% with inspiration . PERICARDIAL EFFUSION There is no evidence of significant pericardial effusion. Critical Notification Critical Value: No <Conclusion> The left ventricular systolic function is normal and the ejection fraction is within normal range. E stimated ejection fraction 55-60%. There is normal LV segmental wall motion. Signed by : Teodoro Mata, Electronically Approved : 03/03/2021 16:42:20
== END ==
LOC: ECHO 09:55
PROVIDERS: ATTEND Internal Medicine Cardiovascular Disease
DX: I37.1 Nonrheumatic pulmonary valve insufficiency (principal); I48.0 Paroxysmal atrial fibrillation; I51.7 Cardiomegaly
CPT/HCPCS: 93306

== ENCOUNTER → 2022-03-10 | Outpatient (CLI) | payer MEDICARE ==
[2018-05-16 11:00] VITALS: BP 159/99
[~2022-03-10] MED LIST changes: -OMEP40CA45 PO; +OMEP40CA7 PO; +TERB250T72 PO; -TERB250T84 PO
--- NOTE | 2022-03-10 12:28 | CARD ---
MR#: [id number] Date of Study: 03/10/2022 Ordering Physician: JUSTIN PURCELL, Referring Physician: Renita TREJO: Rayo Nair [facility] APPROVED REPORT EXAM: Two-dimensional and M-mode echocardiogram with Doppler and color Doppler. Other Information Quality : AverageHR: 62bpm Rhythm : NSR INDICATION Sick Sinus Syndrome Surgery/Intervention Pacemaker: 2D DIMENSIONS Left Atrium(2D)4.3 (1.6-4.0cm)IVSd1.2 (0.7-1.1cm) Aortic Root(2D)3.3 (2.0-3.7cm)LVDd5.6 (3.9-5.9cm) LVOT Diameter2.2 (1.8-2.4cm)PWd1.2 (0.7-1.1cm) LVDs3.7 (2.5-4.0cm)FS (%) 34.4 % SV96.1 mlLVEF(%)62.9 (>50%) Aortic Valve AoV Peak Cedric.168.7cm/sAoV VTI34.2cm AO Peak GR.11.4mmHgLVOT Peak Cedric.119.7cm/s LVOT VTI 25.74cmAO Mean GR.6mmHg MARIE (VMAX)1.67gp4PCU (VTI)2.82cm2 Mitral Valve MV E Mmigqfof95.5cm/sMV DECEL YLZE178ae MV A Wlckxiyg08.3cm/sMV VWJ76nj E/A Ratio0.8MVA (PHT)3.52cm2 TDI E/Lateral E'11.7E/Medial E'15.0 Pulmonary Valve PV Peak Ygmpctcw892.4cm/sPV Peak Grad.10mmHg Tricuspid Valve TR P. Oisomhdc319nd/sTR Peak Gr.23mmHg Pulmonary Vein S1 Knhwdrga68.4cm/sD2 Cgjlkyad62.7cm/s LEFT VENTRICLE The left ventricle is normal size. There is mild concentric left ventricular hypertrophy. The left ve ntricular systolic function is normal. The ejection fraction is estimated at 55 to 60%. There is norm al LV segmental wall motion. Transmitral Doppler flow pattern is Grade I-abnormal relaxation pattern. No left ventricle thrombus noted on this study. There is no ventricular septal defect visualized. Th ere is no left ventricular aneurysm. There is no mass noted in the left ventricle. RIGHT VENTRICLE The right ventricle is normal size. There is normal right ventricular wall thickness. The right ventr icular systolic function is normal. Pacemaker lead noted in the right atrium and right ventricle. ATRIA The left atrium is mildly dilated. The right atrium size is normal. The interatrial septum is intact with no evidence for an atrial septal defect or patent foramen ovale as noted on 2-D or Doppler imagi ng. AORTIC VALVE The aortic valve is normal in structure and function. Doppler and Color Flow revealed no significant aortic regurgitation. There is no significant aortic valvular stenosis. There is no aortic valvular v egetation. MITRAL VALVE The mitral valve is normal in structure and function. There is no evidence of mitral valve prolapse. There is no mitral valve stenosis. Doppler and Color-flow revealed trace mitral regurgitation. TRICUSPID VALVE The tricuspid valve is normal in structure and function. Doppler and Color Flow revealed trace tricus pid regurgitation. There is no tricuspid valve prolapse or vegetation. There is no tricuspid valve st enosis. PULMONIC VALVE The pulmonary valve is normal in structure and function. Doppler and Color Flow revealed no pulmonic valvular regurgitation. There is no pulmonic valvular stenosis. GREAT VESSELS The aortic root is normal in size. The ascending aorta is normal in size. The pulmonary artery is nor mal. The IVC is normal in size and collapses >50% with inspiration. PERICARDIAL EFFUSION There is no pleural effusion. There is no evidence of significant pericardial effusion. Critical Notification Critical Value: No <Conclusion> The left ventricular systolic function is normal. The ejection fraction is estimated at 55 to 60%. There is normal LV segmental wall motion. Transmitral Doppler flow pattern is Grade I-abnormal relaxation pattern. Pacer wires noted RA/RV. Trace mitral regurgitation. Trace tricuspid regurgitation. There is no evidence of significant pericardial effusion. Signed by : Justin Purcell, Electronically Approved : 03/10/2022 12:27:37
== END ==
LOC: ECHO 10:37
PROVIDERS: ATTEND Internal Medicine Cardiovascular Disease
DX: I51.7 Cardiomegaly (principal); I49.5 Sick sinus syndrome
CPT/HCPCS: 93306; C8929